=== PATIENT | male | born 1995 | race Caucasian/White ===

== ENCOUNTER 2016-06-21 02:19 | Emergency (ER) | payer BC ==
[~2016-06-21] VITALS: Ht 177.8 cm; Wt 127.7 kg
[2016-06-21 03:37] VITALS: BP 136/74
== END 2016-06-21 03:48 | disposition home or self-care (01) ==
LOC: EME 02:19
DX: S06.0X9A Concussion with loss of consciousness of unspecified duration, initial encounter (principal); T74.11XA Adult physical abuse, confirmed, initial encounter; Y04.8XXA Assault by other bodily force, initial encounter
CPT/HCPCS: 70450; 70486; 99281; 99284